=== PATIENT | male | born 1945 | race Caucasian/White ===

== ENCOUNTER 2016-08-12 06:32 | Day surgery (SDCO) | payer MEDICARE ==
[2016-08-12 06:59] LABS: HCT 46.2 % (42.0-52.0); HGB 16.1 g/dl (13.2-18.0); MCH 30.2 pg (25.0-31.0); MCHC 34.8 g/dL (32.0-36.0); MCV 86.7 fL (78.0-100.0); MPV 10.1 fL (6.0-9.5); RBC 5.33 M/uL (4.70-6.00); RDW 13.2 % (11.5-14.0); WBC 3.9 K/uL (4.0-10.5)
[2016-08-12 09:42] LABS: CREATININE 1.2 mg/dL (0.7-1.2); POTASSIUM 3.3 mmol/L (3.5-5.1)
--- NOTE | 2016-08-13 04:28 | NUR ---
PT REPORTS THAT STOOL IS CLEAR AND LIQUIDY THIS MORNING
[2016-08-13 05:32] LABS: HCT 45.1 % (42.0-52.0); HGB 15.7 g/dl (13.2-18.0); MCHC 34.8 g/dL (32.0-36.0); MCV 86.2 fL (78.0-100.0); RBC 5.23 M/uL (4.70-6.00); WBC 4.9 K/uL (4.0-10.5)
[2016-08-13 06:00] LABS: POTASSIUM 3.4 mmol/L (3.5-5.1)
--- NOTE | 2016-08-13 09:02 | NUR ---
PATIENT HAS STATED THAT HE IS READY TO GO HOME NOW, JUST ARRIVED FROM FLOOR FROM SURGERY, PER INSTRUCTIONS THAT PATIENT IS TO BE DC HOME PER PROTOCAL. PATIENT REFUSES TO EAT BREAKFRAST AND STATES THAT HE WILL IS READY. PATIENT IS NOT BLEEDING AND BP IS WITHIN NORMAL LIMITS.
== END 2016-08-13 09:15 | disposition home or self-care (01) ==
LOC: FAS 06:32 → FMS 10:15
PROVIDERS: ADMIT Surgery
DX: D12.5 Benign neoplasm of sigmoid colon (principal); K63.5 Polyp of colon; D12.4 Benign neoplasm of descending colon; D69.3 Immune thrombocytopenic purpura; Z80.0 Family history of malignant neoplasm of digestive organs; K43.2 Incisional hernia without obstruction or gangrene; I10 Essential (primary) hypertension; G47.30 Sleep apnea, unspecified; Z79.82 Long term (current) use of aspirin; Z79.899 Other long term (current) drug therapy; Z86.010 Personal history of colon polyps; Z99.81 Dependence on supplemental oxygen; K57.30 Diverticulosis of large intestine without perforation or abscess without bleeding
CPT/HCPCS: 36415; 36430; 80048; 86850; 86900; 86901; 88305; G0378; J2704; P9035

== ENCOUNTER → 2021-10-07 | Day surgery (SDC) | payer MEDICARE ==
[~2021-10-07] VITALS: Ht 182.9 cm; Wt 113.4 kg
[~2021-10-07] MED LIST: ASCORBIC ACID500 MG PO; CENTRUM ADULTS1 EACH PO; LISINOPRIL20 MG PO; LOVAZA1 GM PO; PRINIVIL10 MG PO; TOPROL XL 50 MG50 MG PO; TRIAMCINOLONE 080 GM TOP; TUMERIC PO
[2021-10-07 07:37] LABS: HCT 46.7 % (42.0-52.0); HGB 16.2 g/dl (13.2-18.0); MCHC 34.7 g/dL (32.0-36.0); MCV 89.3 fL (78.0-100.0); MPV 10.7 fL (6.0-9.5); RBC 5.23 M/uL (4.70-6.00); RDW 11.8 % (11.5-14.0); WBC 4.3 K/uL (4.0-10.5)
== END | disposition home or self-care (01) ==
LOC: FAS 06:52
PROVIDERS: Student in an Organized Health Care Education/Training Program
DX: D12.3 Benign neoplasm of transverse colon (principal); D12.6 Benign neoplasm of colon, unspecified; D12.4 Benign neoplasm of descending colon; K62.1 Rectal polyp; D69.6 Thrombocytopenia, unspecified; K57.30 Diverticulosis of large intestine without perforation or abscess without bleeding; K64.8 Other hemorrhoids; Z86.010 Personal history of colon polyps; Z85.038 Personal history of other malignant neoplasm of large intestine; Z98.0 Intestinal bypass and anastomosis status; Z79.82 Long term (current) use of aspirin; Z90.49 Acquired absence of other specified parts of digestive tract
CPT/HCPCS: 36415; 86850; 86900; 86901; 88305; J2704; J7120